=== PATIENT | male | born 1940 | race Caucasian/White ===

== ENCOUNTER 2016-09-22 14:39 | Emergency (ER) | payer OTHER, BC ==
[2016-09-22 16:10] LABS: % IMMATURE GRANULYOCYTES 0.3 % (0.0-1.1); ABSOLUTE IMMATURE GRANULOCYTES 0.03 10^3/uL (0.00-0.10); ADD DIFF? NO; ADD MORPH? NO; ADD SCAN? NO; ATYPICAL LYMPHOCYTE FLAG 0 (0-99); FRAGMENT RBC FLAG 0 (0-99); HEMOGLOBIN 12.6 g/dL (13.7-17.5); LEFT SHIFT FLG 0 (0-99); LIPEMIA HEMOLYSIS FLAG 80 (0-99); MEAN CELL HEMOGLOBIN 30.4 pg (27.9-34.1); MEAN CELL HEMOGLOBIN CONCENTR. 33.2 g/dL (32.4-36.7); MEAN CELL VOLUME 91.6 fL (81.5-99.8); MEAN PLATELET VOLUME 9.5 fL (8.7-11.7); PLATELET CLUMPS FLAG 10 (0-99); PLATELET COUNT 602 10^3/uL (150-400); RED BLOOD CELL COUNT 4.15 10^6/uL (4.40-6.38); RED CELL DISTRIBUTION WIDTH 12.7 % (11.5-15.2)
[2016-09-22 16:28] LABS: ANION GAP 14 mEq/L (8-16); CALCIUM 9.1 mg/dL (8.5-10.4); CARBON DIOXIDE 22 mEq/l (22-31); CHLORIDE 107 mEq/L (97-110); CREATININE 1.2 mg/dL (0.7-1.3); GLOMERULAR FILTRATION RATE 59; GLUCOSE 119 mg/dL (70-100); POTASSIUM 4.5 mEq/L (3.5-5.2); SODIUM 143 mEq/L (134-144)
[2016-09-22 16:35] LABS: TROPONIN I 0.468 ng/mL (0-0.034)
[2016-09-22] MEDS ORDERED: NITROGLYCERIN 2% 1 GM PACKET TP ONE (16:37)
[2016-09-22] MEDS ORDERED: ASPIRIN 81 MG CHEWABLE TAB PO ONE (16:38)
--- NOTE | 2016-09-22 16:55 | UCPHY ---
H & P Patient Type: New Chief Complaint Nursing Narrative: mi in [place]/ut from hospital 09/12 here for rehab/daughter says her father hasn't been able to sleep/periodic breathing at night waking him/ cp saturday/took nitro and recovered Time Seen by Provider: 09/22/16 15:33 HPI/ROS: This patient had a STEMI while in [place] on September 12. He reports that his symptoms that time or chest pain and dyspnea. The patient had multivessel disease. The primary culprit lesion appeared to be an OM vessel and right coronary that were stented. The also stented his LAD. He was discharged in stable condition with the additional history of paroxysmal AFib on Eliquis, Plavix and other meds as per nurse's note. He reports compliance with his medications. Saturday of this week, 3 days prior to arrival the patient developed an episode of chest pain described as [id number] substernal pressure rest that resolved with a single nitroglycerin sublingual. They did not seek medical attention at that time. No chest pain since but he complains of paroxysmal nocturnal dyspnea that has been preventing sleep. He is uncertain if it is simple anxiety or shortness of breath that keeps awakening him. He is only having 2-3 hours of sleep at a time due to the symptoms. ROS: No fevers or chills. He reports mild fatigue but no other constitutional symptoms. HEENT: No complaints pulmonary: No cough. No pleuritic pain. Cardiovascular: He denies any heart palpitations. Again no chest pain currently. No lower extremity swelling. No diaphoresis. No nausea or vomiting. GI: Decreased appetite no other symptoms. : No complaints integumentary: No complaints 10 point ROS is otherwise negative. Source: Patient, Family (He is accompanied by his daughter with whom he is staying.) - Personal History Current Tetanus/Diphtheria Vaccine: Unsure - Medical/Surgical History PMH: Ltq-otseyri-wvwhurshy diabetes Previous ND on September 12 and also an ND prior to that with multiple stents. Hx Asthma: No Hx Chronic Respiratory Disease: No Hx Diabetes: Yes Hx Cardiac Disease: Yes Hx Renal Disease: No Hx Cirrhosis: No Hx Alcoholism: No Hx HIV/AIDS: No Hx Splenectomy or Spleen Trauma: No Other PMH: fx ribs - Family History Significant Family History: No pertinent family hx - Social History Smoking Status: Former smoker Alcohol Use: None (The patient quit smoking pipe with after his ND earlier in August) Drug Use: None Additional Social History: Patient lives in a sailboat in [place]. He is now staying with his daughter in [place] for cardiac rehab - Physical Exam Exam: General Appearance: Alert, no distress. Eyes: Pupils equal and round no pallor or injection. ENT, Mouth: Mucous membranes moist. Respiratory: There are no retractions, lungs are clear to auscultation. Cardiovascular: Regular rate and rhythm. No murmur gallop or rub is appreciated. No significant JVD. No peripheral edema. Gastrointestinal: Abdomen is soft and nontender, no masses, bowel sounds normal. Neurological: Alert with no focal deficits. Skin: Mild pallor. Warm and dry, no rashes. Musculoskeletal: Neck is supple nontender. Extremities are symmetrical, full range of motion. Psychiatric: Mood and affect are normal DIFFERENTIAL DIAGNOSIS: After history and physical exam differential diagnosis was considered for ND, coronary syndrome Constitutional: Initial Vital Signs Temperature (C) 36.5 C 09/22/16 15:11 Heart Rate 79 09/22/16 15:11 Respiratory Rate 18 09/22/16 15:11 Blood Pressure 105/72 09/22/16 15:11 O2 Sat (%) 96 09/22/16 15:11 O2 Delivery Mode Room Air Allergies/Adverse Reactions: No Known Allergies Allergy (Unverified 09/22/16 15:08) Home Medications: Medication Instructions Recorded Atorvastatin Calcium 09/22/16 Eliquis 09/22/16 Januvia 100 MG (*) 09/22/16 Lisinopril 09/22/16 Metoprolol Succinate 09/22/16 Nitroglycerin 09/22/16 Plavix 09/22/16 Medical Decision Making - Diagnostics EKG Interpretation: 12 lead EKG performed shortly after arrival at 3:43 p.m. reveals sinus rhythm at 92 Intervals: Normal with exception of an prolonged QT see of 515. [place]: P of-9, QRS of 189, T of 111 ST segments are notable for biphasic T-waves in leads V5 and V6 no previous EKGs are available for comparison overall assessment sinus rhythm with nonspecific lateral T-wave abnormalities-cannot rule out ischemia For complete read please refer to the trace master read ED Course/Re-evaluation: Aspirin, IV, monitor After elevated troponin patient is placed on 0.5 inch nitro paste and given Lasix in addition for tachypnea and significant elevated BNP suggesting some failure. Patient remained stable on the monitor with no further complaints. I spoke with Dr. Leroy, hospitalist at [facility] accepts the patient for direct admit to telemetry. Patient's family requests [facility] already having physicians there Discussion: Patient presents with paroxysmal nocturnal dyspnea an earlier episode of chest pain with elevated troponin confirming coronary syndrome. EKG does not reveal any significant ST elevation. Patient remains hemodynamically stable. Warrants admission for cardiology consult further evaluation and treatment. I answered the patient's and his daughter's questions regarding his condition and the treatment plan. They understand and are agreeable to the transfer. - Data Points Laboratory Results: Laboratory Results 09/22/16 16:05 09/22/16 16:05 09/22/16 16:05 WBC 10.54 H 10^3/uL (3.80-9.50) RBC 4.15 L 10^6/uL (4.40-6.38) Hgb 12.6 L g/dL (13.7-17.5) Hct 38.0 L % (40.0-51.0) MCV 91.6 fL (81.5-99.8) MCH 30.4 pg (27.9-34.1) MCHC 33.2 g/dL (32.4-36.7) RDW 12.7 % (11.5-15.2) Plt Count 602 H 10^3/uL (150-400) MPV 9.5 fL (8.7-11.7) Neut % (Auto) 70.7 % (39.3-74.2) Lymph % (Auto) 19.8 % (15.0-45.0) [place] % (Auto) 6.5 % (4.5-13.0) Eos % (Auto) 2.2 % (0.6-7.6) Baso % (Auto) 0.5 % (0.3-1.7) Nucleat RBC Rel Count 0.0 % (0.0-0.2) Absolute Neuts (auto) 7.45 H 10^3/uL (1.70-6.50) Absolute Lymphs (auto) 2.09 10^3/uL (1.00-3.00) Absolute Monos (auto) 0.69 10^3/uL (0.30-0.80) Absolute Eos (auto) 0.23 10^3/uL (0.03-0.40) Absolute Basos (auto) 0.05 10^3/uL (0.02-0.10) Absolute Nucleated RBC 0.00 10^3/uL (0-0.01) Immature Gran % 0.3 % (0.0-1.1) Immature Gran # 0.03 10^3/uL (0.00-0.10) Sodium 143 mEq/L (134-144) Potassium 4.5 mEq/L (3.5-5.2) Chloride 107 mEq/L (97-110) Carbon Dioxide 22 mEq/l (22-31) Anion Gap 14 mEq/L (8-16) BUN 20 mg/dL (7-23) Creatinine 1.2 mg/dL (0.7-1.3) Estimated GFR 59 Glucose 119 H mg/dL (70-100) Calcium 9.1 mg/dL (8.5-10.4) Troponin I 0.468 H ng/mL (0-0.034) NT-Pro-B Natriuret Pep 5880 H pg/mL (0-450) Medications Given: Discontinued Medications Aspirin (Aspirin) 324 mg PO EDNOW ONE Stop: 09/22/16 16:39 Last Admin: 09/22/16 16:54 Dose: 324 mg Nitroglycerin (Nitro-Bid 2%) 0.5 inch TP EDNOW ONE Stop: 09/22/16 16:38 Last Admin: 09/22/16 16:54 Dose: 0.5 inch Departure - Departure Disposition: Acute Care Hospital Not [facility] Clinical Impression: Acute coronary syndrome Condition: Serious Referrals: OUT OF STATE,. [Primary Care Provider] - As per Instructions - PQRS PQRS Measurement: 134: Depression screening and followup, PRIME MD-PHQ2 (12 years and older) Over the last 2 weeks, how often have you been bothered by any of the following problems? 1. Feeling down, depressed, or hopeless? 2. Little interest or pleasure in doing things? Patient answered no to both 1 and 2 130: Documentation of medications. Reviewed all patient medications, doses, route and frequency. 226: Do you smoke? [No.] 47: 65 and older: Advanced care planning. Patient designates surrogate decision maker as daughter 51: 18 years old and older with diagnosis of COPD, spirometry performance. NA 52: 18 years old and older with COPD and symptoms of COPD or FEV1<60% predicted prescribed a B Agonist. NA
[2016-09-22] MEDS ORDERED: FUROSEMIDE 20 MG/2 ML VIAL IVP ONE (16:57)
--- NOTE | 2016-09-22 17:09 | DX ---
Chest 2 view, PA and lateral. History: Dyspnea Findings: Heart size is within normal limits. Pulmonary vascularity is normal. The lungs are clear of acute consolidation. Moderate peribronchial cuffing is seen bilaterally. Emphysematous configuration to the chest. No evidence for pleural effusion. Degenerative changes seen in the thoracic spine. Aor ta is tortuous. Impression: Moderate bronchitis. No other findings for acute cardiopulmonary abnormality.
[2016-09-22 17:33] VITALS: RESP 16
[2016-09-22 23:25] VITALS: BP 117/82; PULSE 78; TEMP 98.6; O2SAT 94
--- NOTE | 2016-09-24 08:35 | CPEKG ---
Heart Rate: 92 RR Interval: 652 P-R Interval: 156 QRSD Interval: 90 QT Interval: 416 QTC Interval: 515 P Wever: -9 QRS Wever: 189 T Wave Wever: 111 EKG Severity - ABNORMAL ECG - EKG Impression: SINUS RHYTHM EKG Impression: PROBABLE LEFT ATRIAL ABNORMALITY EKG Impression: LOW VOLTAGE IN FRONTAL LEADS EKG Impression: NONSPECIFIC T ABNORMALITIES, LATERAL LEADS EKG Impression: PROLONGED QT INTERVAL Electronically Signed By: Randal Sterling 24-Sep-2016 08:56:15
== END 2016-09-22 18:15 | disposition short-term general hospital (02) ==
LOC: CED 14:39
DX: I24.9 Acute ischemic heart disease, unspecified (principal); Z87.891 Personal history of nicotine dependence; Z86.79 Personal history of other diseases of the circulatory system
CPT/HCPCS: 71020; 93005; 96374; G0463; 80048-PO; 83880-PO; 84484-PO; 85025-PO; 93010-PO; 99205-PO

== ENCOUNTER → 2016-11-26 | Outpatient (CLI) | payer OTHER, BC | LOC: SBRMNEURO 21:00 | PROVIDERS: ATTEND Psychiatry & Neurology Sleep Medicine | DX: G47.31 Primary central sleep apnea (principal) ==